=== PATIENT | female | born 1965 | race Caucasian/White ===

== ENCOUNTER 2016-05-24 21:28 | Observation (INO) | payer BC, MEDICARE ==
[2016-05-24] MEDS ORDERED: METOCLOPRAMIDE 5 MG/ML 2 ML VIAL IVP STA (22:01)
[2016-05-24] MEDS ORDERED: SODIUM CHLORIDE 0.9% 1,000 ML IV STA ×2 (22:01)
[2016-05-24 22:27] LABS: Basophils % (A) 0 %; CHCM 33.6; Eosinophils # (A) 0.1 k/uL (0-0.7); Eosinophils % (A) 2 %; HCT 35.1 % (34.0-46.0); HDW 2.92; HGB 11.7 gm/dL (11.4-16.0); Luc # (Auto) 0.08; Luc % (Auto) 3; Lymphocytes # (A) 0.1 k/uL (1.0-4.8); Lymphocytes % (A) 5 %; MCH 32.8 pg (25.0-35.0); MCHC 33.3 g/dL (31.0-37.0); MCV 98.7 fL (80.0-100.0); Macrocytosis Slight; Mean Platelet Volume 7.3; Monocytes # (A) 0.2 k/uL (0-1.0); Monocytes % (A) 6 %; Neutrophils # (A) 2.4 k/uL (1.3-7.7); Neutrophils % (A) 84 %; RBC 3.56 m/uL (3.80-5.40); RDW 15.3 % (11.5-15.5); WBC 2.8 k/uL (3.8-10.6)
[2016-05-24 22:41] LABS: ALT 30 U/L (9-52); AST 16 U/L (14-36); Alkaline Phosphatase 54 U/L (38-126); Amylase 56 U/L (30-110); Anion Gap 8 mmol/L; Blood Urea Nitrogen 12 mg/dL (7-17); Calcium 8.8 mg/dL (8.4-10.2); Carbon Dioxide 27 mmol/L (22-30); Chloride 103 mmol/L (98-107); Glucose 110 mg/dL (74-99); Non-African American GFR(MDRD) >60 (>60 ml/min/1.73 sqM); Potassium 3.8 mmol/L (3.5-5.1); Sodium 138 mmol/L (137-145); Total Bilirubin 0.6 mg/dL (0.2-1.3)
[2016-05-24 23:02] LABS: Appearance,Urine Cloudy (Clear); Bacteria,Urine Rare /hpf; Bilirubin,Urine Negative (Negative); Glucose,Urine (UA) Negative (Negative); Ketones,Urine Negative (Negative); Leukocyte Esterase,Urine Large (Negative); Mucus,Urine Rare /hpf; Nitrite,Urine Positive (Negative); Particle Count 31956; Protein,Urine Trace (Negative); RBC,Urine 30 /hpf (0-5); Specific Gravity,Urine 1.014 (1.001-1.035); Squamous Epithelial Cell,Urine 3 /hpf (0-4); UA Billing (MACRO vs. MICRO) MICRO; Urobilinogen,Urine <2.0 mg/dL (<2.0); WBC,Urine >182 /hpf (0-5)
--- NOTE | 2016-05-24 23:48 | ED ---
General Adult HPI - General Chief complaint: Nausea/Vomiting/Diarrhea Stated complaint: Nausea/Headache Time Seen by Provider: 05/24/16 21:55 Source: patient Mode of arrival: wheelchair Limitations: no limitations - History of Present Illness Initial comments: This 50-year-old white female presents with a complaint of some nausea and weakness. She denies any vomiting diarrhea or constipation. She apparently had some shaking chills earlier. She did not measure any temperature as she does not have a thermometer. She took some Advil 2 hours ago. She relates that she had a recent urinary tract infection and stopped antibiotics proximally 3 days ago. She is unsure which antibiotic she was taking. She's been very weak and relates that she's had a hard time with ambulation today. She has a history of glioblastoma which she's been fighting for the past one year. She gets chemotherapy and has been on this intermittently for the last 10 months through the [facility]. Her last chemotherapy was 2 weeks ago. She denies any other complaints or modifying factors. - Related Data Home Medications Medication Instructions Recorded Confirmed Citalopram Hydrobromide [CeleXA] 10 mg PO HS 06/13/15 05/24/16 Montelukast Sodium [Singulair] 10 mg PO HS 06/13/15 05/24/16 levETIRAcetam [Keppra] 500 mg PO BID 09/14/15 05/24/16 Albuterol Inhaler [Ventolin Hfa 1 - 2 puff INHALATION RT-Q6H PRN 05/24/16 Inhaler] Albuterol Nebulized [Ventolin 2.5 mg INHALATION RT-Q6H PRN 05/24/16 05/24/16 Nebulized] Amitriptyline HCl [Elavil] 10 mg PO HS 05/24/16 05/24/16 Calcium Carbonate [Tums] 1,000 mg PO DAILY 05/24/16 05/24/16 Cholecalciferol [Vitamin D3] 2,000 unit PO DAILY 05/24/16 05/24/16 Dexamethasone [Hexadrol] 4 mg PO DAILY 05/24/16 05/24/16 Methylphenidate HCl [Ritalin] 20 mg PO DAILY 05/24/16 05/24/16 Allergies Allergy/AdvReac Type Severity Reaction Status Date / Time No Known Allergies Allergy Verified 05/24/16 21:52 Review of Systems ROS Statement: Those systems with pertinent positive or pertinent negative responses have been documented in the HPI. ROS Other: All systems not noted in ROS Statement are negative. Past Medical History Past Medical History: Cancer, Fibromyalgia Additional Past Medical History / Comment(s): EPILEPSY RESOLVED WITH SURGERY, glioblastoma History of Any Multi-Drug Resistant Organisms: None Reported Additional Past Surgical History / Comment(s): BRAIN SURGERY X2 Past Anesthesia/Blood Transfusion Reactions: No Reported Reaction Past Psychological History: No Psychological Hx Reported Smoking Status: Never smoker Past Alcohol Use History: Rare Past Drug Use History: None Reported General Exam - General Exam Comments Initial Comments: GENERAL: The patient is well nourished and well hydrated. VITAL SIGNS: Heart rate, blood pressure, respiratory rate reviewed as recorded in nurse's notes. EYES: Pupils are round and reactive. Extraocular movements are intact. No conjunctival / lid redness or swelling. ENT: No external evidence of injury, swelling, or ecchymosis. Airway is patent. Throat is clear. NECK: Nontender. No swelling or evidence of injury. No subcutaneous emphysema. Trachea is midline. No thyroid mass. HEART: Regular rate and rhythm. Good peripheral pulses. LUNGS/CHEST: Breath sounds clear and equal bilaterally. No rales, rhonchi, or wheezes. No ecchymosis, subcutaneous emphysema, or tenderness. ABDOMEN: Abdomen soft without tenderness. No palpable masses or organomegaly. No peritoneal signs. No abdominal wall swelling or ecchymosis. EXTREMITIES: No extremity tenderness. Normal muscle tone and function. No thoracolumbar tenderness. NEUROLOGIC: Sensation is grossly intact. Cranial nerve exam reveals face is symmetrical, tongue is midline, speech is clear. SKIN: No abrasions or ecchymosis is noted. No induration or masses noted. PSYCHIATRIC: Alert and oriented. Appropriate behavior and judgment. Limitations: no limitations Course Vital Signs 05/24/16 21:39 Temperature 98.6 F Pulse Rate 86 Respiratory 18 Rate Blood Pressure 113/78 O2 Sat by Pulse 96 Oximetry Medical Decision Making - Medical Decision Making The patient was seen and examined. All diagnostics were reviewed. The urinalysis did come back showing significant evidence of infection similar to that and old records from 04/30/2016. The white blood cell count is decreased at 2.8. Manger of labs are essentially within normal limits. She receives IV fluids as well as Reglan and her nausea is improved. She also receives Rocephin intravenously. This felt as though she does have urinary tract infection. She is also immunocompromised due to her cancer and chemotherapy treatment. Is felt as though she likely had some rigors earlier and is very weak. Is felt as though she would benefit from admission to the hospital for further IV antibiotic treatment. The case will be discussed with internal medicine in the near future and patient is admitted for further treatment. - Lab Data Result diagrams: 05/24/16 22:15 05/24/16 22:15 Lab Results 05/24/16 05/24/16 05/24/16 Range/Units 22:15 22:15 22:39 WBC 2.8 L (3.8-10.6) k/uL RBC 3.56 L (3.80-5.40) m/uL Hgb 11.7 (11.4-16.0) gm/dL Hct 35.1 (34.0-46.0) % MCV 98.7 (80.0-100.0) fL MCH 32.8 (25.0-35.0) pg MCHC 33.3 (31.0-37.0) g/dL RDW 15.3 (11.5-15.5) % Plt Count 175 (150-450) k/uL Neutrophils % 84 % Lymphocytes % 5 % Monocytes % 6 % Eosinophils % 2 % Basophils % 0 % Neutrophils # 2.4 (1.3-7.7) k/uL Lymphocytes # 0.1 L (1.0-4.8) k/uL Monocytes # 0.2 (0-1.0) k/uL Eosinophils # 0.1 (0-0.7) k/uL Basophils # 0.0 (0-0.2) k/uL Macrocytosis Slight Sodium 138 (137-145) mmol/L Potassium 3.8 (3.5-5.1) mmol/L Chloride 103 (98-107) mmol/L Carbon Dioxide 27 (22-30) mmol/L Anion Gap 8 mmol/L BUN 12 (7-17) mg/dL Creatinine 0.59 (0.52-1.04) mg/dL Est GFR (MDRD) Af Amer >60 (>60 ml/min/1.73 sqM) Est GFR (MDRD) Non-Af >60 (>60 ml/min/1.73 sqM) Glucose 110 H (74-99) mg/dL Calcium 8.8 (8.4-10.2) mg/dL Total Bilirubin 0.6 (0.2-1.3) mg/dL AST 16 (14-36) U/L ALT 30 (9-52) U/L Alkaline Phosphatase 54 (38-126) U/L Total Protein 6.0 L (6.3-8.2) g/dL Albumin 3.5 (3.5-5.0) g/dL Amylase 56 (30-110) U/L Lipase 170 (23-300) U/L Urine Color Yellow Urine Appearance Cloudy H (Clear) Urine pH 6.0 (5.0-8.0) Ur Specific [place] 1.014 (1.001-1.035) Urine Protein Trace H (Negative) Urine Glucose (UA) Negative (Negative) Urine Ketones Negative (Negative) Urine Blood Small H (Negative) Urine Nitrate Positive H (Negative) Urine Bilirubin Negative (Negative) Urine Urobilinogen <2.0 (<2.0) mg/dL Ur Leukocyte Esterase Large H (Negative) Urine RBC 30 H (0-5) /hpf Urine WBC >182 H (0-5) /hpf Urine WBC Clumps Moderate H (None) /hpf Ur Squamous Epith Cells 3 (0-4) /hpf Urine Bacteria Rare H (None) /hpf Urine Mucus Rare H (None) /hpf Disposition Clinical Impression: UTI (urinary tract infection), Glioblastoma, Weakness generalized, Nausea, Failure of outpatient treatment, Leukopenia Disposition: ADMITTED IP TO THIS [facility] Condition: Fair Time of Disposition: 23:49 Decision Date: 05/24/16 Decision Time: 23:49
[2016-05-24] MEDS ORDERED: NALOXONE 0.4 MG/ML 1 ML VIAL IV PRN (23:52)
[2016-05-24] MEDS ORDERED: ACETAMINOPHEN TAB 325 MG TAB PO PRN (23:52)
[2016-05-24] MEDS ORDERED: IBUPROFEN 400 MG TAB PO PRN (23:52)
[2016-05-25] MEDS ORDERED: METOCLOPRAMIDE 5 MG/ML 2 ML VIAL IVP PRN (00:01)
[2016-05-25] MEDS ORDERED: ALBUTEROL INHALER 60 PUFF/8 GM INHALER INHALATION PRN (00:02)
[2016-05-25] MEDS ORDERED: ALBUTEROL NEBULIZED 2.5 MG/3 ML INHALATION PRN (00:02)
[2016-05-25 01:48] VITALS: RESP 16
[2016-05-25 01:54] VITALS: BMI 23.7
[2016-05-25 07:53] VITALS: BP 122/75; PULSE 84; TEMP 97.4
[2016-05-25] MEDS ORDERED: METHYLPHENIDATE HCL 10 MG TAB PO SCH (09:00)
[2016-05-25] MEDS ORDERED: CALCIUM CARBONATE 500 MG CHEWABLE PO SCH (09:00)
[2016-05-25] MEDS ORDERED: PANTOPRAZOLE 40 MG/10 ML VIAL IV SCH (09:00)
[2016-05-25] MEDS ORDERED: CHOLECALCIFEROL 1,000 UNIT TAB PO SCH (09:00)
[2016-05-25] MEDS ORDERED: DEXAMETHASONE 4 MG TAB PO SCH (09:00)
[2016-05-25] MEDS ORDERED: ENOXAPARIN 40 MG/0.4 ML SYRINGE SQ SCH (09:00)
[2016-05-25] MEDS ORDERED: levETIRAcetam 500 MG TAB PO SCH (09:00)
--- NOTE | 2016-05-25 12:41 | HP ---
HISTORY AND PHYSICAL/DISCHARGE SUMMARY: DATE OF ADMISSION: Patient is a 50-year-old with history of glioblastoma multiforme, came in with complaints of nausea, vomiting and diarrhea, has been going on for about 2 days and patient believes she has stomach flu. She had some flulike symptoms as well. Patient is admitted for urinary tract infection. Patient does not have any symptoms of urinary tract infection. Patient does not any leukocytosis. Patient does not have any fevers. Patient does not have any suprapubic pain or dysuria, although her urine appear to be of normal asymptomatic bacteria which does not warrant any antibiotics. Patient was given 2 doses of Rocephin, antibiotics will be discontinued. Patient has asymptomatic bacteria. Patient will be discharged today. Her symptoms of diarrhea resolved. Patient used antibiotics about a week ago for a urinary tract infection and patient's UA showed large leukocyte esterase, RBC of 30, WBC of 182, although she received 2 dose of antibiotics and I do not believe patient has UTI, I rather believe patient has symptomatic bacteria and if patient has diarrhea before discharge, will obtain a C. diff testing. Her diarrhea is completely resolved at this point of time. REVIEW OF SYSTEMS: GASTROINTESTINAL: As described in HPI. Patient denied any abdominal pain, denied any nausea, vomiting at this time. CONSTITUTIONAL: No fever, no malaise, no fatigue. HEENT: No recent visual problems or hearing problems. Denied any sore throat. CARDIOVASCULAR: No chest pain, orthopnea, PND, no palpitations, no syncope. PULMONARY: No shortness of breath, no cough, no hemoptysis. NEUROLOGICAL: No headaches, no weakness, no numbness. HEMATOLOGICAL: Denies any bleeding or petechiae. GENITOURINARY: Denies any burning micturition, frequency, or urgency. MUSCULOSKELETAL/RHEUMATOLOGICAL: Denies any joint pain, swelling, or any muscle pain. ENDOCRINE: Denies any polyuria or polydipsia. The rest of the 14 point review of systems is negative. PAST MEDICAL HISTORY: Glioblastoma multiforme and fibromyalgia and ADHD and depression. Home medications include citalopram, montelukast, Levetiracetam, albuterol, amitriptyline, calcium carbonate, cholecalciferol, Decadron and methylphenidate. SOCIAL HISTORY: Denied any smoking, alcohol abuse or any drug abuse. FAMILY HISTORY: Significant for hypothyroidism and epilepsy in the family. PHYSICAL EXAMINATION: Temperature 97.4, pulse of 84, respiratory rate of 16, blood pressure is 122/75, saturating at 96% on room air. GENERAL: The patient is alert and oriented x3, not in any acute distress. Well developed, well nourished. HEENT: Pupils are round and equally reacting to light. EOMI. No scleral icterus. No conjunctival pallor. Normocephalic, atraumatic. No pharyngeal erythema. No thyromegaly. CARDIOVASCULAR: S1 and S2 present. No murmurs, rubs, or gallops. PULMONARY: Chest is clear to auscultation, no wheezing or crackles. ABDOMEN: Soft, nontender, nondistended, normoactive bowel sounds. No palpable organomegaly. MUSCULOSKELETAL: No joint swelling or deformity. EXTREMITIES: No cyanosis, clubbing, or pedal edema. NEUROLOGICAL: Gross neurological examination did not reveal any focal deficits. SKIN: No rashes. LABORATORY DATA: CBC, CMP, essentially within normal limits. UA as mentioned above. ASSESSMENT AND PLAN: 1. Nausea, vomiting secondary to gastroenteritis. Symptoms resolved. Patient will be discharged today. 2. Asymptomatic bacteria which does not warrant any antibiotics. I do not believe patient has urinary tract infection. 3. Glioblastoma multiforme. 4. Fibromyalgia. 5. Asthma without any acute exacerbation. For above-mentioned chronic medical problems, patient will continue her home medications. Patient will be discharged today in stable medical to home and patient will follow with her primary care physician on May 31, 2016 at 10:30 a.m. Activity as tolerated. Regular diet. This dictation is both H&P and discharge summary.
[2016-05-25] MEDS ORDERED: AMITRIPTYLINE HCL 10 MG TAB PO SCH (21:00)
[2016-05-25] MEDS ORDERED: MONTELUKAST 10 MG TAB PO SCH (21:00)
[2016-05-25] MEDS ORDERED: CITALOPRAM HYDROBROMIDE 10 MG TAB PO SCH (21:00)
[2016-05-26] MEDS ORDERED: PANTOPRAZOLE 40 MG TABLET PO SCH (07:30)
--- NOTE | 2016-06-09 15:17 | CDI ---
Dr. Rizzo, Pt with magnesium level of 1.4 per labs. Pt recieved magnesium in the EC and on the floor. Please add an addendum with the diagnosis. "Hypomagnesium" "low magnesium" Thank you, Kate PROCTOR
== END 2016-05-25 12:24 | disposition home or self-care (01) ==
LOC: EC 21:28 → INTOOBSV 05-25 00:17 → 4MS4W 05-25 00:17
PROVIDERS: ADMIT Internal Medicine; ATTEND Internal Medicine
DX: K52.9 Noninfective gastroenteritis and colitis, unspecified (principal); R82.71 Bacteriuria; C71.9 Malignant neoplasm of brain, unspecified; M79.7 Fibromyalgia; J45.909 Unspecified asthma, uncomplicated; G40.909 Epilepsy, unspecified, not intractable, without status epilepticus; F32.9 Major depressive disorder, single episode, unspecified; F90.9 Attention-deficit hyperactivity disorder, unspecified type; D72.819 Decreased white blood cell count, unspecified; Z92.21 Personal history of antineoplastic chemotherapy; Z79.899 Other long term (current) drug therapy; Z79.52 Long term (current) use of systemic steroids; Z82.0 Family history of epilepsy and other diseases of the nervous system
CPT/HCPCS: 96365; 96361; 96375; 99285; 36415; 80053; 82150; 83690; 85025; 81001; 87040; 87086; 87077; 87186; G0378; J8540; J2765; J1650; J0696; C9113

== ENCOUNTER → 2016-08-18 | Outpatient (CLI) | payer BC, MEDICARE ==
--- NOTE | 2016-08-18 13:27 | MM ---
Reason for exam: follow-up at short interval from prior study. Last mammogram was performed 6 months ago. History: Patient is postmenopausal and has history of other cancer at age 50. Cancelled Right US Needle Biopsy of the right breast, July 28, 2007. Ultrasound-guided core biopsy of the right breast, 2005. Excisional biopsy of the right breast, 2005. Took hormonal contraceptives for 12 years beginning at age 17. Took progesterone for 2 years. Physical Findings: Nurse did not find any significant physical abnormalities on exam. MG 3D Diag Mammo W/Cad RT CC, MLO, ML, CC with magnification, MLO with magnification, and ML with magnification view(s) were taken of the right breast. Prior study comparison: February 18, 2016, bilateral MG 3d screening mammo w/cad. January 16, 2014, bilateral MG screening mammo w CAD. February 18, 2012, [facility] DIGITAL LEFT BREAST MAMMOGRAM w/CAD. The breast tissue is heterogeneously dense. This may lower the sensitivity of mammography. Finding: There are typically benign dystrophic calcifications in the upper outer quadrant of the right breast. There is no worrisome cluster of micro calcifications. These results were verbally communicated with the patient and result sheet given to the patient on 08/18/16. ASSESSMENT: Benign, BI-RAD 2 RECOMMENDATION: Follow-up diagnostic mammogram of both breasts in 6 months. Back on schedule January 2017.
== END | disposition home or self-care (01) ==
LOC: RADMAMWWP 11:08
PROVIDERS: ATTEND Family Medicine
DX: R92.8 Other abnormal and inconclusive findings on diagnostic imaging of breast (principal)
CPT/HCPCS: G0206; G0279

== ENCOUNTER 2016-09-05 10:04 | Inpatient (IN) | payer BC, MEDICARE ==
[2016-09-05] MEDS ORDERED: ACETAMINOPHEN IV (For NPO) 1,000 MG in EMPTY BAG 1 BAG IVPB STA (10:19)
--- NOTE | 2016-09-05 10:26 | ED ---
General Adult HPI - General Chief complaint: Fever Stated complaint: vomiting Time Seen by Provider: 09/05/16 10:12 Source: patient, family, RN notes reviewed Mode of arrival: wheelchair Limitations: physical limitation - History of Present Illness Initial comments: Patient is a pleasant 51-year-old female presenting to the emergency Department with general weakness. Patient has glioblastoma. Onset of symptoms was last night. Patient has had multiple episodes of nausea and vomiting and diarrhea. Patient did have similar symptoms once previously associated with dehydration. Patient was generally weak throughout and needed 3 people to help get her in the car. Patient is drowsy and sleeps through discussion with family. Family provides majority of history. Patient does easily awaken to voice or light touch however falls asleep after less than a minute. Patient does admit to having some abdominal discomfort. No dysuria. No cough. Patient is currently in between chemotherapy treatments, last was 3 weeks ago. Patient has her care done [facility]. Patient does have a external cranial device. Patient has chronic left-sided weakness. Patient states she is generally weak without increase in specific area of weakness. - Related Data Home Medications Medication Instructions Recorded Confirmed Citalopram Hydrobromide [CeleXA] 10 mg PO HS 06/13/15 09/05/16 Montelukast Sodium [Singulair] 10 mg PO HS 06/13/15 09/05/16 Albuterol Inhaler [Ventolin Hfa 1 - 2 puff INHALATION RT-Q6H PRN 05/24/16 Inhaler] Albuterol Nebulized [Ventolin 2.5 mg INHALATION RT-Q6H PRN 05/24/16 09/05/16 Nebulized] Calcium Carbonate [Tums] 1,000 mg PO DAILY 05/24/16 09/05/16 Cholecalciferol [Vitamin D3] 2,000 unit PO DAILY 05/24/16 09/05/16 Dexamethasone [Hexadrol] 4 mg PO DAILY 05/24/16 09/05/16 Methylphenidate HCl [Ritalin] 20 mg PO DAILY 05/24/16 09/05/16 Oxybutynin Chloride [Ditropan XL] 15 mg PO DAILY 09/05/16 09/05/16 levETIRAcetam [Keppra] 1,000 mg PO Q12HR 09/05/16 09/05/16 Allergies Allergy/AdvReac Type Severity Reaction Status Date / Time No Known Allergies Allergy Verified 09/05/16 10:32 Review of Systems ROS Statement: Those systems with pertinent positive or pertinent negative responses have been documented in the HPI. ROS Other: All systems not noted in ROS Statement are negative. Constitutional: Reports: weakness Eyes: Denies: eye pain ENT: Denies: ear pain Respiratory: Denies: cough, dyspnea Cardiovascular: Denies: chest pain Endocrine: Reports: fatigue Gastrointestinal: Reports: abdominal pain, nausea, vomiting, diarrhea Genitourinary: Denies: dysuria Musculoskeletal: Denies: back pain Skin: Denies: rash Neurological: Reports: weakness Past Medical History Past Medical History: Asthma, Cancer, Fibromyalgia Additional Past Medical History / Comment(s): EPILEPSY RESOLVED WITH SURGERY, glioblastoma diagnosed 06/13/2015 with radiation tx 6weeks and chemo oraltx last dose 2 weeks ago. UTI History of Any Multi-Drug Resistant Organisms: None Reported Additional Past Surgical History / Comment(s): BRAIN SURGERY X2 Past Anesthesia/Blood Transfusion Reactions: No Reported Reaction Past Psychological History: No Psychological Hx Reported Smoking Status: Never smoker Past Alcohol Use History: Rare Past Drug Use History: None Reported - Past Family History Mother Family Medical History: Thyroid Disorder Father Family Medical History: Myocardial Infarction ([place]) Additional Family Medical History / Comment(s): epilepsy General Exam Limitations: physical limitation General appearance: other (Drowsy but easily arousable) Head exam: Present: other (External device attached to the right side of the head) Eye exam: Present: normal appearance, PERRL, EOMI ENT exam: Present: mucous membranes dry Neck exam: Present: normal inspection. Absent: meningismus Respiratory exam: Present: normal lung sounds bilaterally Cardiovascular Exam: Present: tachycardia GI/Abdominal exam: Present: soft. Absent: distended, tenderness, guarding, rebound, rigid Extremities exam: Present: other (Left leg brace) Neurological exam: Present: alert, CN II-XII intact Expanded Cranial nerves: EOM's Intact: Normal Motor strength exam: RUE: 5, LUE: 5, RLE: 5, LLE: 3 Eye Response: (3) open to voice Motor Response: (6) obeys commands Verbal Response: (5) oriented Psychiatric exam: Present: normal affect, normal mood Skin exam: Present: normal color Course Vital Signs 09/05/16 09/05/16 09/05/16 10:07 11:00 11:57 Temperature 100.5 F H Pulse Rate 142 H 122 H 110 H Respiratory 20 18 18 Rate Blood Pressure 124/81 116/79 111/73 O2 Sat by Pulse 96 98 97 Oximetry - Reevaluation(s) Reevaluation #1: 09/05/16 11:54 Patient does meet criteria for severe sepsis diagnosed at 11:48 AM. Patient has evidence of urinary tract infection. IV fluid bolus has been provided. Antibiotics have been ordered. Blood culture and lactic acid has been drawn. 09/05/16 12:55 Case was earlier discussed with Dr. Xavier who will consult. He agrees with care at this time. EKG Findings - EKG Comments: EKG Findings:: Sinus tachycardia 123. UT 120. QRS 76. QT 4:30. QTC 4:15. Normal axis. LVH criteria. Nonspecific T waves. Medical Decision Making - Medical Decision Making Patient was reevaluated and somewhat improved. Patient and family updated regarding results and plan. Dr. Smith has been paged for admission for Dr. hernandez - Lab Data Result diagrams: 09/05/16 10:30 09/05/16 10:30 Lab Results 09/05/16 09/05/16 09/05/16 Range/Units 10:30 10:30 10:30 WBC 8.8 (3.8-10.6) k/uL RBC 3.86 (3.80-5.40) m/uL Hgb 12.7 (11.4-16.0) gm/dL Hct 38.5 (34.0-46.0) % MCV 99.9 (80.0-100.0) fL MCH 33.0 (25.0-35.0) pg MCHC 33.0 (31.0-37.0) g/dL RDW 16.1 H (11.5-15.5) % Plt Count 145 L (150-450) k/uL Neutrophils % (Manual) 83.0 % Band Neutrophils % 14.0 % Lymphocytes % (Manual) 2.0 % Monocytes % (Manual) 1.0 % Neutrophils # (Manual) 8.5 H (1.3-7.7) k/uL Lymphocytes # (Manual) 0.2 L (1.0-4.8) k/uL Monocytes # (Manual) 0.1 (0-1.0) k/uL Nucleated RBCs 0 (0-0) /100 WBC Manual Slide Review Performed Poikilocytosis (manual Present Anisocytosis Slight Macrocytosis Slight PT (9.0-12.0) sec INR (<1.1) APTT (22.0-30.0) sec Sodium 140 (137-145) mmol/L Potassium 3.3 L (3.5-5.1) mmol/L Chloride 104 (98-107) mmol/L Carbon Dioxide 23 (22-30) mmol/L Anion Gap 13 mmol/L BUN 24 H (7-17) mg/dL Creatinine 0.80 (0.52-1.04) mg/dL Est GFR (MDRD) Af Amer >60 (>60 ml/min/1.73 sqM) Est GFR (MDRD) Non-Af >60 (>60 ml/min/1.73 sqM) Glucose 136 H (74-99) mg/dL Plasma Lactic Acid [place] 2.8 H* (0.7-2.0) mmol/L Calcium 9.3 (8.4-10.2) mg/dL Total Bilirubin 1.1 (0.2-1.3) mg/dL AST 26 (14-36) U/L ALT 37 (9-52) U/L Alkaline Phosphatase 75 (38-126) U/L Total Protein 6.2 L (6.3-8.2) g/dL Albumin 3.9 (3.5-5.0) g/dL Urine Color Urine Appearance (Clear) Urine pH (5.0-8.0) Ur Specific [place] (1.001-1.035) Urine Protein (Negative) Urine Glucose (UA) (Negative) Urine Ketones (Negative) Urine Blood (Negative) Urine Nitrite (Negative) Urine Bilirubin (Negative) Urine Urobilinogen (<2.0) mg/dL Ur Leukocyte Esterase (Negative) Urine RBC (0-5) /hpf Urine WBC (0-5) /hpf Urine WBC Clumps (None) /hpf Ur Squamous Epith Cells (0-4) /hpf Urine Bacteria (None) /hpf Urine Mucus (None) /hpf 09/05/16 09/05/16 Range/Units 11:10 11:10 WBC (3.8-10.6) k/uL RBC (3.80-5.40) m/uL Hgb (11.4-16.0) gm/dL Hct (34.0-46.0) % MCV (80.0-100.0) fL MCH (25.0-35.0) pg MCHC (31.0-37.0) g/dL RDW (11.5-15.5) % Plt Count (150-450) k/uL Neutrophils % (Manual) % Band Neutrophils % % Lymphocytes % (Manual) % Monocytes % (Manual) % Neutrophils # (Manual) (1.3-7.7) k/uL Lymphocytes # (Manual) (1.0-4.8) k/uL Monocytes # (Manual) (0-1.0) k/uL Nucleated RBCs (0-0) /100 WBC Manual Slide Review Poikilocytosis (manual Anisocytosis Macrocytosis PT 11.6 (9.0-12.0) sec INR 1.2 (<1.1) APTT 24.1 (22.0-30.0) sec Sodium (137-145) mmol/L Potassium (3.5-5.1) mmol/L Chloride (98-107) mmol/L Carbon Dioxide (22-30) mmol/L Anion Gap mmol/L BUN (7-17) mg/dL Creatinine (0.52-1.04) mg/dL Est GFR (MDRD) Af Amer (>60 ml/min/1.73 sqM) Est GFR (MDRD) Non-Af (>60 ml/min/1.73 sqM) Glucose (74-99) mg/dL Plasma Lactic Acid [place] (0.7-2.0) mmol/L Calcium (8.4-10.2) mg/dL Total Bilirubin (0.2-1.3) mg/dL AST (14-36) U/L ALT (9-52) U/L Alkaline Phosphatase (38-126) U/L Total Protein (6.3-8.2) g/dL Albumin (3.5-5.0) g/dL Urine Color Yellow Urine Appearance Cloudy H (Clear) Urine pH 6.5 (5.0-8.0) Ur Specific [place] 1.010 (1.001-1.035) Urine Protein 1+ H (Negative) Urine Glucose (UA) Negative (Negative) Urine Ketones Negative (Negative) Urine Blood Moderate H (Negative) Urine Nitrite Positive H (Negative) Urine Bilirubin Negative (Negative) Urine Urobilinogen <2.0 (<2.0) mg/dL Ur Leukocyte Esterase Large H (Negative) Urine RBC 5 (0-5) /hpf Urine WBC 151 H (0-5) /hpf Urine WBC Clumps Moderate H (None) /hpf Ur Squamous Epith Cells <1 (0-4) /hpf Urine Bacteria Occasional H (None) /hpf Urine Mucus Few H (None) /hpf - Radiology Data Radiology results: image reviewed (Extensive white matter vasogenic edema through the right centrum underlying mass along the midline may remain present. 0.5 cm subfalcine herniation. Chest x-ray shows no acute process.) Disposition Clinical Impression: Severe sepsis, UTI (urinary tract infection), Glioblastoma Disposition: ADMITTED IP TO THIS HOSP Referrals: Russ Hernandez III, MD [Primary Care Provider] - 1-2 days Decision Time: 12:58
[2016-09-05 10:47] LABS: Anisocytosis Slight; CH 33.8; CHCM 33.9; HCT 38.5 % (34.0-46.0); HDW 3.24; HGB 12.7 gm/dL (11.4-16.0); Immature Gran Flag Moderate; MCV 99.9 fL (80.0-100.0); Macrocytosis Slight; Mean Platelet Volume 6.9; RBC 3.86 m/uL (3.80-5.40); RDW 16.1 % (11.5-15.5); WBC 8.8 k/uL (3.8-10.6); WBC (Perox) 8.95
[2016-09-05 11:04] LABS: ALT 37 U/L (9-52); AST 26 U/L (14-36); Alkaline Phosphatase 75 U/L (38-126); Anion Gap 13 mmol/L; Blood Urea Nitrogen 24 mg/dL (7-17); Calcium 9.3 mg/dL (8.4-10.2); Carbon Dioxide 23 mmol/L (22-30); Chloride 104 mmol/L (98-107); Glucose 136 mg/dL (74-99); Non-African American GFR(MDRD) >60 (>60 ml/min/1.73 sqM); Potassium 3.3 mmol/L (3.5-5.1); Sodium 140 mmol/L (137-145); Total Bilirubin 1.1 mg/dL (0.2-1.3); Total Protein 6.2 g/dL (6.3-8.2)
[2016-09-05 11:08] LABS: Add Differential Manual Differential
[2016-09-05 11:10] LABS: Manual Review Performed; Nucleated Red Blood Cells 0 /100 WBC (0-0); Total Cells Counted 100
[2016-09-05] MEDS ORDERED: SODIUM CHLORIDE 0.9% 1,000 ML IV STA (11:14)
[2016-09-05] MEDS: SODIUM CHLORIDE 0.9% 500 ML IV SCH ×2 (11:18→12:20)
[2016-09-05 11:31] LABS: Appearance,Urine Cloudy (Clear); Bacteria,Urine Occasional /hpf; Bilirubin,Urine Negative (Negative); Glucose,Urine (UA) Negative (Negative); Ketones,Urine Negative (Negative); Leukocyte Esterase,Urine Large (Negative); Mucus,Urine Few /hpf; Nitrite,Urine Positive (Negative); PH, Urine 6.5 (5.0-8.0); Particle Count 107276; Protein,Urine 1+ (Negative); RBC,Urine 5 /hpf (0-5); Squamous Epithelial Cell,Urine <1 /hpf (0-4); UA Billing (MACRO vs. MICRO) MICRO; Urobilinogen,Urine <2.0 mg/dL (<2.0); WBC,Urine 151 /hpf (0-5)
[2016-09-05 11:35] LABS: INR 1.2 (<1.1); Partial Thromboplastin Time 24.1 sec (22.0-30.0); Prothrombin Time 11.6 sec (9.0-12.0)
--- NOTE | 2016-09-05 12:54 | XR ---
EXAMINATION TYPE: XR chest 2V DATE OF EXAM: 09/05/2016 COMPARISON: NONE INDICATION: Fever TECHNIQUE: Frontal and lateral views of the chest are obtained. FINDINGS: The heart size is normal. The pulmonary vasculature is normal. The lungs are clear. IMPRESSION: 1. No acute pulmonary process.
--- NOTE | 2016-09-05 12:54 | CT ---
EXAMINATION TYPE: CT brain wo con DATE OF EXAM: 09/05/2016 COMPARISON: 06/13/2015 INDICATION: glioblastoma history, weakness DLP: 1003.6 mGycm, Automated exposure control for dose reduction was used. CONTRAST: None CT of the brain is performed utilizing 3 mm thick sections through the posterior fossa and 3 mm thick sections through the remaining calvarium. Study is performed within 24 hours of arrival to the hosp [facility]. No abnormal hyperdensity is present to suggest an acute intracranial hemorrhage. There is calcification within the medial right parietal lobe. Extensive vasogenic edema appears throu ghout the centrum semiovale. There appears to be an old craniotomy in the right temporal region. Ence phalomalacia of the right temporal lobe is present. There is approximately 0.5 cm right to left subfalcine herniation. There is effacement of sulci on th e right frontal parietal lobes. Quadrigeminal plate and ambient cistern are patent. Fourth ventricle is normal in midline. Third ventricle appears midline. No acute infarcts are evident. Ventricles and sulci are appropriate for the patient age. Note is again made of the left shift of th e right lateral ventricle. Temporal horn dilatation is not identified. Paranasal sinuses and mastoid air cells within the [id number] are clear. IMPRESSIONS: 1. There appears to be extensive white matter vasogenic edema through the right centrum semiovale. Underlying mass along the midline may remain present and more calcified than prior examination. [facility] MRI for closer evaluation. 2. 0.5 cm subfalcine herniation. No entrapment or hydrocephalus is evident at this time.
[2016-09-05] MEDS ORDERED: NALOXONE 0.4 MG/ML 1 ML VIAL IV PRN (12:58)
--- NOTE | 2016-09-05 13:51 | P.HPIM ---
History of Present Illness H&P Date: 09/05/16 Chief Complaint: Diarrhea 1-year-old female with glioblastoma multiform a with recurrence currently is being treated [facility] with the radiofrequency device on her skull and Flaquita comes into the hospital with watery diarrhea for about 24 hours prior to admission. Patient states that the she has not had anyone else in the family with similar diarrhea no recent antibiotics or reported She also states to have some urinary urgency or frequency. Denies having any headaches nausea chest pain difficulty breathing. Patient was noted to have a fever of 101 was admitted to the hospital was noted to have significant dehydration with a lactic acidosis around 2.4 Patient was given IV fluids a UA did appear to show some bacteria Patient has been given IV fluids per the sepsis protocol Currently states to be doing better has not had a bowel movement in over 67 hours No additional complaints reported A computed tomography scan of the head does show a tumor with vasogenic edema. Patient states that she's had a MRI or 2 weeks ago at the [facility] was reported of similar symptoms. Patient is currently maintained on Decadron for vasogenic edema as well Review of Systems All systems: negative (Noted in HPI) Past Medical History Past Medical History: Asthma, Cancer, Fibromyalgia Additional Past Medical History / Comment(s): EPILEPSY RESOLVED WITH SURGERY, glioblastoma diagnosed 06/13/2015 with radiation tx 6weeks and chemo oraltx last dose 2 weeks ago. UTI History of Any Multi-Drug Resistant Organisms: None Reported Additional Past Surgical History / Comment(s): BRAIN SURGERY X2 Past Anesthesia/Blood Transfusion Reactions: No Reported Reaction Past Psychological History: No Psychological Hx Reported Smoking Status: Never smoker Past Alcohol Use History: Rare Past Drug Use History: None Reported - Past Family History Mother Family Medical History: Thyroid Disorder Father Family Medical History: Myocardial Infarction ([place]) Additional Family Medical History / Comment(s): epilepsy Medications and Allergies Home Medications Medication Instructions Recorded Confirmed Type Citalopram Hydrobromide [CeleXA] 10 mg PO HS 06/13/15 09/05/16 History Montelukast Sodium [Singulair] 10 mg PO HS 06/13/15 09/05/16 History Albuterol Inhaler [Ventolin Hfa 1 - 2 puff INHALATION RT-Q6H PRN 05/24/16 History Inhaler] Albuterol Nebulized [Ventolin 2.5 mg INHALATION RT-Q6H PRN 05/24/16 09/05/16 History Nebulized] Calcium Carbonate [Tums] 1,000 mg PO DAILY 05/24/16 09/05/16 History Cholecalciferol [Vitamin D3] 2,000 unit PO DAILY 05/24/16 09/05/16 History Dexamethasone [Hexadrol] 4 mg PO DAILY 05/24/16 09/05/16 History Methylphenidate HCl [Ritalin] 20 mg PO DAILY 05/24/16 09/05/16 History Oxybutynin Chloride [Ditropan XL] 15 mg PO DAILY 09/05/16 09/05/16 History levETIRAcetam [Keppra] 1,000 mg PO Q12HR 09/05/16 09/05/16 History Allergies Allergy/AdvReac Type Severity Reaction Status Date / Time No Known Allergies Allergy Verified 09/05/16 10:32 Physical Exam Vitals: Vital Signs Temp Pulse Resp BP Pulse Ox 09/05/16 12:50 99.3 F 96 18 121/68 98 09/05/16 11:57 110 H 18 111/73 97 09/05/16 11:00 122 H 18 116/79 98 09/05/16 10:07 100.5 F H 142 H 20 124/81 96 Intake and Output 09/04/16 09/05/16 09/05/16 22:59 06:59 14:59 Other: Weight 59.421 kg Patient Weight 09/06/16 06:59 Weight 59.421 kg Physical exam Gen. appearance oriented 3 in no distress Neck is supple no JVD Lungs good air entry clear to auscultation no rhonchi or wheezing Heart S1-S2 heard regular rate and rhythm no murmurs appreciated Abdomen is soft nontender no organomegaly bowel sounds are intact Neurologically cranial nerves II-12 grossly intact left-sided weakness noted strength is 3-4 out of 5 noted Skin no abnormalities appreciated Results CBC & Chem 7: 09/05/16 10:30 09/05/16 10:30 Labs: Abnormal Lab Results - Last 24 Hours (Table) 09/05/16 09/05/16 09/05/16 Range/Units 10:30 10:30 10:30 RDW 16.1 H (11.5-15.5) % Plt Count 145 L (150-450) k/uL Neutrophils # (Manual) 8.5 H (1.3-7.7) k/uL Lymphocytes # (Manual) 0.2 L (1.0-4.8) k/uL Potassium 3.3 L (3.5-5.1) mmol/L BUN 24 H (7-17) mg/dL Glucose 136 H (74-99) mg/dL Plasma Lactic Acid Sampson 2.8 H* (0.7-2.0) mmol/L Total Protein 6.2 L (6.3-8.2) g/dL Urine Appearance (Clear) Urine Protein (Negative) Urine Blood (Negative) Urine Nitrite (Negative) Ur Leukocyte Esterase (Negative) Urine WBC (0-5) /hpf Urine WBC Clumps (None) /hpf Urine Bacteria (None) /hpf Urine Mucus (None) /hpf 09/05/16 Range/Units 11:10 RDW (11.5-15.5) % Plt Count (150-450) k/uL Neutrophils # (Manual) (1.3-7.7) k/uL Lymphocytes # (Manual) (1.0-4.8) k/uL Potassium (3.5-5.1) mmol/L BUN (7-17) mg/dL Glucose (74-99) mg/dL Plasma Lactic Acid Sampson (0.7-2.0) mmol/L Total Protein (6.3-8.2) g/dL Urine Appearance Cloudy H (Clear) Urine Protein 1+ H (Negative) Urine Blood Moderate H (Negative) Urine Nitrite Positive H (Negative) Ur Leukocyte Esterase Large H (Negative) Urine WBC 151 H (0-5) /hpf Urine WBC Clumps Moderate H (None) /hpf Urine Bacteria Occasional H (None) /hpf Urine Mucus Few H (None) /hpf Assessment and Plan Plan: #1 sepsis likely secondary to urinary tract infection. #2 glioblastoma multiform with recurrence #3 vasogenic edema #4 history of seizure disorder #5 I hypokalemia #Lactic acidosis #7 adHD #8 hypertension Plan Continue with Rocephin. Patient appears to be doing well Heart rates improved Replace potassium Continue with the current dose of Decadron and GI prophylaxis Patient is to continue wearing her radiofrequency device for GBM Seizure prophylaxis to be reinitiated medications were reconciled. Patient appears to be stable we'll likely discharge the patient next 24 hours with oral antibiotics
[2016-09-05 15:17] VITALS: BMI 23.9
[2016-09-05] MEDS: SODIUM CHLORIDE 0.9% 1,000 ML IV SCH ×2 (16:51→22:06)
[2016-09-05] MEDS ORDERED: ONDANSETRON 4 MG/2 ML VIAL IVP PRN (17:38)
[2016-09-05] MEDS: ACETAMINOPHEN TAB 325 MG TAB PO PRN (18:53)
[2016-09-05] MEDS: POTASSIUM CHLORIDE ER 20 MEQ TAB.ER PO SCH ×3 (18:54→22:06)
[2016-09-05] MEDS: levETIRAcetam 500 MG TAB PO SCH (20:49)
[2016-09-05] MEDS: MONTELUKAST 10 MG TAB PO SCH (20:49)
[2016-09-05] MEDS: CITALOPRAM HYDROBROMIDE 10 MG TAB PO SCH (20:49)
[2016-09-05] MEDS: CALCIUM CARBONATE 500 MG CHEWABLE PO PRN (20:50)
[2016-09-06] MEDS: ACETAMINOPHEN TAB 325 MG TAB PO PRN ×2 (03:11→08:40)
[2016-09-06] MEDS: SODIUM CHLORIDE 0.9% 1,000 ML IV SCH ×2 (06:40→17:36)
[2016-09-06] MEDS: CALCIUM CARBONATE 500 MG CHEWABLE PO PRN (07:35)
[2016-09-06 08:17] LABS: ALT 30 U/L (9-52); AST 19 U/L (14-36); Alkaline Phosphatase 62 U/L (38-126); Anion Gap 7 mmol/L; Blood Urea Nitrogen 11 mg/dL (7-17); Calcium 8.3 mg/dL (8.4-10.2); Carbon Dioxide 21 mmol/L (22-30); Chloride 112 mmol/L (98-107); Glucose 97 mg/dL (74-99); Non-African American GFR(MDRD) >60 (>60 ml/min/1.73 sqM); Potassium 4.2 mmol/L (3.5-5.1); Sodium 140 mmol/L (137-145); Total Bilirubin 0.8 mg/dL (0.2-1.3); Total Protein 5.1 g/dL (6.3-8.2)
[2016-09-06 08:21] LABS: Basophils % (A) 0 %; CH 33.6; CHCM 33.7; Eosinophils % (A) 0 %; HCT 31.9 % (34.0-46.0); HGB 10.4 gm/dL (11.4-16.0); Luc # (Auto) 0.07; Luc % (Auto) 1; Lymphocytes # (A) 0.2 k/uL (1.0-4.8); Lymphocytes % (A) 3 %; MCH 32.5 pg (25.0-35.0); MCHC 32.5 g/dL (31.0-37.0); Macrocytosis Slight; Mean Platelet Volume 6.8; Monocytes # (A) 0.2 k/uL (0-1.0); Monocytes % (A) 3 %; Neutrophils # (A) 5.8 k/uL (1.3-7.7); Neutrophils % (A) 93 %; RBC 3.19 m/uL (3.80-5.40); RDW 15.5 % (11.5-15.5); WBC 6.3 k/uL (3.8-10.6); WBC (Perox) 6.42
[2016-09-06] MEDS: DEXAMETHASONE 4 MG TAB PO SCH (08:29)
[2016-09-06] MEDS: levETIRAcetam 500 MG TAB PO SCH ×2 (08:29→21:43)
[2016-09-06] MEDS ORDERED: PANTOPRAZOLE 40 MG/10 ML VIAL IVP SCH (09:00)
[2016-09-06] MEDS: NYSTATIN 100,000 UNIT/ML SUSP 500,000 UNIT/5 ML CUP PO SCH ×3 (14:27→21:44)
[2016-09-06] MEDS: SALT AND SODA MOUTHWASH 1,000 ML PO SCH ×3 (14:27→21:44)
--- NOTE | 2016-09-06 16:00 | P.PN ---
Subjective 51-year-old female with glioblastoma multiform a with recurrence currently is being treated [facility] with the radiofrequency device on her skull and Flaquita comes into the hospital with watery diarrhea for about 24 hours prior to admission. Patient states that the she has not had anyone else in the family with similar diarrhea no recent antibiotics or reported She also states to have some urinary urgency or frequency. Denies having any headaches nausea chest pain difficulty breathing. Patient was noted to have a fever of 101 was admitted to the hospital was noted to have significant dehydration with a lactic acidosis around 2.4 Patient was given IV fluids a UA did appear to show some bacteria Patient has been given IV fluids per the sepsis protocol Currently states to be doing better has not had a bowel movement in over 67 hours No additional complaints reported A computed tomography scan of the head does show a tumor with vasogenic edema. Patient states that she's had a MRI or 2 weeks ago at the [facility] was reported of similar symptoms. Patient is currently maintained on Decadron for vasogenic edema as well 09/06/16 doing better today no overight events reported complaints of pain in her right flank Physical exam Gen. appearance oriented 3 in no distress Neck is supple no JVD Lungs good air entry clear to auscultation no rhonchi or wheezing Heart S1-S2 heard regular rate and rhythm no murmurs appreciated Abdomen is soft nontender no organomegaly bowel sounds are intact Neurologically cranial nerves II-12 grossly intact left-sided weakness noted strength is 3-4 out of 5 noted Skin no abnormalities appreciated Objective - Vital Signs Vital signs: Vital Signs Temp 98.0 F 09/06/16 15:00 Pulse 87 09/06/16 15:00 Resp 20 09/06/16 15:00 BP 112/68 09/06/16 15:00 Pulse Ox 94 L 09/06/16 15:00 Intake & Output 09/05/16 09/06/16 09/06/16 18:59 06:59 18:59 Weight 57.5 kg Other: Voiding Method Diaper Diaper Bedside Commode Diaper Incontinent # Voids 2 5 1 # Bowel Movements 0 - Labs CBC & Chem 7: 09/06/16 07:21 09/06/16 07:21 Labs: Abnormal Lab Results - Last 24 Hours (Table) 09/06/16 09/06/16 Range/Units 07:21 07:21 RBC 3.19 L (3.80-5.40) m/uL Hgb 10.4 L (11.4-16.0) gm/dL Hct 31.9 L (34.0-46.0) % Plt Count 94 L (150-450) k/uL Lymphocytes # 0.2 L (1.0-4.8) k/uL Chloride 112 H (98-107) mmol/L Carbon Dioxide 21 L (22-30) mmol/L Calcium 8.3 L (8.4-10.2) mg/dL Total Protein 5.1 L (6.3-8.2) g/dL Albumin 2.7 L (3.5-5.0) g/dL Microbiology - Last 24 Hours (Table) 09/05/16 11:10 Urine Culture - Preliminary Urine,Catheterized Gram Neg Bacilli 09/05/16 10:30 Blood Culture Gram Stain - Preliminary Blood Blood Culture - Preliminary 09/05/16 10:30 Blood Culture - Preliminary Blood Assessment and Plan Plan: #1 sepsis likely secondary to urinary tract infection.with gram negative bacteremia. await cultures and repeat blood culture #2 glioblastoma multiform with recurrence #3 vasogenic edema #4 history of seizure disorder #5 I hypokalemia #Lactic acidosis #7 adHD #8 hypertension Plan Continue with Rocephin. will repeat a blood culture today Replace potassium Continue with the current dose of Decadron and GI prophylaxis Patient is to continue wearing her radiofrequency device for GBM
--- NOTE | 2016-09-06 17:26 | P.CONS ---
History of Present Illness - Reason for Consult Consult date: 09/06/16 Oncology Care Requesting physician: Gigi Smith - Chief Complaint fever, vomiting - History of Present Illness Mrs. Mccurdy is a very pleasant female pt with a history of GBM, she is due to have her last Temodar treatment in a few weeks, she is going to delay final cycle 1 week due to family democrat, she will be completing 1 year of therapy , she is also currently on new treatment with radio waves-she has electrodes connected to her head and she must be plugged into the device for 18/24 hours in a day, this is to bombard the tumor. She completed last oral Temodar 5 day monthly cycle about 2 weeks ago. Starting Tuesday pt had vomiting fever and diarrhea, she has had episodes of illness before and her left side gets more weak, she did fall 3-4 times at home. No oral irritation, dysphagia, cough, SOB , wheezing, nasal or sinus pressure, she has some right side pain but thinks she fell on a stool, no dysuria, hematuria, no BM today, no swelling or pain. Her noted a coated tongue. Review of Systems All systems: negative Constitutional: Reports as per HPI Past Medical History Past Medical History: Asthma, Cancer, Diabetes Mellitus, Eye Disorder, Fibromyalgia, GERD/Reflux, Memory Impairment, Musculoskeletal Disorder, Seizure Disorder Additional Past Medical History / Comment(s): EPILEPSY RESOLVED WITH SURGERY, glioblastoma diagnosed 06/13/2015 with radiation tx 6weeks and chemo oraltx last dose 2 weeks ago. UTI History of Any Multi-Drug Resistant Organisms: None Reported Additional Past Surgical History / Comment(s): BRAIN SURGERY X2 Past Anesthesia/Blood Transfusion Reactions: No Reported Reaction Past Psychological History: ADD/ADHD, Anxiety Smoking Status: Never smoker - Past Family History Mother Family Medical History: Thyroid Disorder Father Family Medical History: Myocardial Infarction ([place]) Additional Family Medical History / Comment(s): epilepsy Medications and Allergies Home Medications Medication Instructions Recorded Confirmed Type Citalopram Hydrobromide [CeleXA] 10 mg PO HS 06/13/15 09/05/16 History Montelukast Sodium [Singulair] 10 mg PO HS 06/13/15 09/05/16 History Albuterol Inhaler [Ventolin Hfa 1 - 2 puff INHALATION RT-Q6H PRN 05/24/16 History Inhaler] Albuterol Nebulized [Ventolin 2.5 mg INHALATION RT-Q6H PRN 05/24/16 09/05/16 History Nebulized] Calcium Carbonate [Tums] 1,000 mg PO DAILY 05/24/16 09/05/16 History Cholecalciferol [Vitamin D3] 2,000 unit PO DAILY 05/24/16 09/05/16 History Dexamethasone [Hexadrol] 4 mg PO DAILY 05/24/16 09/05/16 History Methylphenidate HCl [Ritalin] 20 mg PO DAILY 05/24/16 09/05/16 History Oxybutynin Chloride [Ditropan XL] 15 mg PO DAILY 09/05/16 09/05/16 History levETIRAcetam [Keppra] 1,000 mg PO Q12HR 09/05/16 09/05/16 History Allergies Allergy/AdvReac Type Severity Reaction Status Date / Time No Known Allergies Allergy Verified 09/05/16 10:32 Physical Exam Vitals: Vital Signs Temp Pulse Pulse Resp BP BP Pulse Ox 09/06/16 08:00 18 09/06/16 07:00 98.1 F 88 18 133/79 94 L 09/05/16 23:00 98.6 F 97 16 102/59 93 L 09/05/16 14:26 99.2 F 97 20 108/63 96 09/05/16 12:50 99.3 F 96 18 121/68 98 Intake and Output 09/05/16 09/06/16 09/06/16 22:59 06:59 14:59 Other: Voiding Method Diaper Bedside Commode Diaper Incontinent # Voids 4 5 2 Weight 57.5 kg - Constitutional General appearance: average body habitus, cooperative, no acute distress - EENT Eyes: anicteric sclerae, EOMI, normal appearance ENT: thrush - Neck Neck: no lymphadenopathy - Respiratory Respiratory: left: rales (few, lower lobe), bilateral: CTA - Cardiovascular Rhythm: regular Heart sounds: normal: S1, S2 Abnormal Heart Sounds: no systolic murmur, no diastolic murmur, no rub, no S3 Gallop, no S4 Gallop, no click, no other leg Peripheral Edema: bilateral: None - Gastrointestinal General gastrointestinal: no absent bowel sounds, no decreased bowel sounds, no distended, no hepatomegaly, no hyperactive bowel sounds, normal bowel sounds, no organomegaly, no rigid, no scaphoid, soft, no splenomegaly, no tenderness, no umbilical hernia, no ventral hernia - Integumentary Integumentary: normal - Neurologic LLE 2/5 strength, LUE 3/5 strength, has to be prompted verbally to release left hand grasp, right upper and lower extremity 4/5 strength Neurologic: focal deficits - Musculoskeletal Musculoskeletal: generalized weakness, left sided weakness - Psychiatric Psychiatric: A&O x's 3, appropriate affect, intact judgment & insight Results CBC & Chem 7: 09/06/16 07:21 09/06/16 07:21 Labs: Abnormal Lab Results - Last 24 Hours (Table) 09/06/16 09/06/16 Range/Units 07:21 07:21 RBC 3.19 L (3.80-5.40) m/uL Hgb 10.4 L (11.4-16.0) gm/dL Hct 31.9 L (34.0-46.0) % Plt Count 94 L (150-450) k/uL Lymphocytes # 0.2 L (1.0-4.8) k/uL Chloride 112 H (98-107) mmol/L Carbon Dioxide 21 L (22-30) mmol/L Calcium 8.3 L (8.4-10.2) mg/dL Total Protein 5.1 L (6.3-8.2) g/dL Albumin 2.7 L (3.5-5.0) g/dL Microbiology - Last 24 Hours (Table) 09/05/16 10:30 Blood Culture Gram Stain - Preliminary Blood Blood Culture - Preliminary 09/05/16 10:30 Blood Culture - Preliminary Blood 09/05/16 11:10 Urine Culture - Preliminary Urine,Catheterized CT Scan - head: report reviewed Assessment and Plan (1) Glioblastoma Narrative/Plan: Pt will continue with radio frequency therapy as directed by Daryl, she has plans to complete temodar in the next few weeks so, as long has pt has recovered from her current illness she should be able to finish therapy. will contact Daryl with any concerns prior to completing treatment. Status: Chronic (2) UTI (urinary tract infection) Narrative/Plan: Pt is on abx therapy Status: Acute (3) Weakness generalized Narrative/Plan: Left sided weakness, pt states this is not uncommon when pt gets ill to have worsening left sided weakness, no acute intervention, PT has already been ordered. Status: Chronic (4) Bicytopenia Narrative/Plan: Mild anemia and thrombocytopenia, likely effect from treatment and concurrent infection, WBC and ANC adequate. Will monitor CBC, no acute intervention needed. Status: Acute
[2016-09-06] MEDS ORDERED: OXYBUTYNIN 15 MG TAB.ER.24 PO SCH ×2 (21:00)
[2016-09-06] MEDS ORDERED: OXYBUTYNIN CHLORIDE 5 MG TAB PO SCH (21:00)
[2016-09-06] MEDS: CITALOPRAM HYDROBROMIDE 10 MG TAB PO SCH (21:43)
[2016-09-06] MEDS: MONTELUKAST 10 MG TAB PO SCH (21:44)
[2016-09-06] MEDS: OXYBUTYNIN 15 MG TAB.ER.24 PO SCH (21:44)
[2016-09-07] MEDS: SODIUM CHLORIDE 0.9% 1,000 ML IV SCH ×3 (03:18→18:04)
[2016-09-07] MEDS: PANTOPRAZOLE 40 MG TABLET PO SCH (08:03)
[2016-09-07] MEDS: NYSTATIN 100,000 UNIT/ML SUSP 500,000 UNIT/5 ML CUP PO SCH ×4 (08:04→23:03)
[2016-09-07] MEDS: DEXAMETHASONE 4 MG TAB PO SCH (08:04)
[2016-09-07] MEDS: SALT AND SODA MOUTHWASH 1,000 ML PO SCH ×4 (08:04→23:32)
[2016-09-07] MEDS: levETIRAcetam 500 MG TAB PO SCH ×2 (08:04→23:03)
[2016-09-07] MEDS: ACETAMINOPHEN TAB 325 MG TAB PO PRN (08:12)
[2016-09-07 08:38] LABS: Basophils % (A) 0 %; CH 33.7; CHCM 33.8; Eosinophils % (A) 0 %; HDW 3.23; HGB 9.8 gm/dL (11.4-16.0); Luc # (Auto) 0.11; Luc % (Auto) 2; Lymphocytes # (A) 0.3 k/uL (1.0-4.8); Lymphocytes % (A) 4 %; MCH 32.8 pg (25.0-35.0); MCHC 32.8 g/dL (31.0-37.0); MCV 99.9 fL (80.0-100.0); Macrocytosis Slight; Monocytes # (A) 0.2 k/uL (0-1.0); Monocytes % (A) 2 %; Neutrophils # (A) 6.1 k/uL (1.3-7.7); Neutrophils % (A) 92 %; RDW 15.5 % (11.5-15.5); WBC 6.6 k/uL (3.8-10.6); WBC (Perox) 7.19
[2016-09-07 09:10] LABS: ALT 31 U/L (9-52); AST 14 U/L (14-36); Alkaline Phosphatase 69 U/L (38-126); Anion Gap 7 mmol/L; Blood Urea Nitrogen 9 mg/dL (7-17); Calcium 8.4 mg/dL (8.4-10.2); Carbon Dioxide 22 mmol/L (22-30); Chloride 110 mmol/L (98-107); Glucose 130 mg/dL (74-99); Non-African American GFR(MDRD) >60 (>60 ml/min/1.73 sqM); Potassium 3.6 mmol/L (3.5-5.1); Sodium 139 mmol/L (137-145); Total Bilirubin 0.5 mg/dL (0.2-1.3); Total Protein 5.2 g/dL (6.3-8.2)
--- NOTE | 2016-09-07 16:56 | P.CONS ---
History of Present Illness - Chief Complaint Medical debility - History of Present Illness I had the op to see patient for inpatient rehab consultation with regard to medical debility. She is known to me from GBM and chronic pain management. Receive prescription for [place] 5, 60 tabs, in March. He has infrequent need for them. Admitted September 05 with dehydration. Current diagnoses sepsis and possible UTI and brain vasogenic edema. PT reports maximal assistance for bed mobility minimal assistance for gait 4 feet with roller walker. Chest x-ray negative. Head CT with white matter edema and a leftward shift that is stable. Previous functional history as elicited from patient: 51-year-old right-handed white female who is lives in one floor home with . And one kid. Doesn't smoke or drink. Independent with cooking, laundry, sitdown shower and gait with [address] Dr. Trent is regular doctor. Review of Systems Review of systems: ENT: Denies sneezes or discharge. Eyes: Denies discharge or photophobia. Cardiac: Denies chest pain or palpitation. Pulmonary: Denies cough or shortness of breath. Breast: Denies discharge or lumps. Gastrointestinal: Denies nausea, emesis, constipation, diarrhea. Genitourinary: Denies discharge or frequency. Musculoskeletal: Discomfort and right hip and ribs. Neurologic: At least mild generalized weakness. Endocrine: Denies shakes or sweats. Oncology: Denies cancers. Dermatologic: Denies rash, itching, pruritus. ALLERGY/immunology: Denies sneezes, rashes. Past Medical History Past Medical History: Asthma, Cancer, Diabetes Mellitus, Eye Disorder, Fibromyalgia, GERD/Reflux, Memory Impairment, Musculoskeletal Disorder, Seizure Disorder Additional Past Medical History / Comment(s): EPILEPSY RESOLVED WITH SURGERY, glioblastoma diagnosed 06/13/2015 with radiation tx 6weeks and chemo oraltx last dose 2 weeks ago. UTI History of Any Multi-Drug Resistant Organisms: None Reported Additional Past Surgical History / Comment(s): BRAIN SURGERY X2 Past Anesthesia/Blood Transfusion Reactions: No Reported Reaction Past Psychological History: ADD/ADHD, Anxiety Smoking Status: Never smoker - Past Family History Mother Family Medical History: Thyroid Disorder Father Family Medical History: Myocardial Infarction ([place]) Additional Family Medical History / Comment(s): epilepsy Medications and Allergies Home Medications Medication Instructions Recorded Confirmed Type Citalopram Hydrobromide [CeleXA] 10 mg PO HS 06/13/15 09/05/16 History Montelukast Sodium [Singulair] 10 mg PO HS 06/13/15 09/05/16 History Albuterol Inhaler [Ventolin Hfa 1 - 2 puff INHALATION RT-Q6H PRN 05/24/16 History Inhaler] Albuterol Nebulized [Ventolin 2.5 mg INHALATION RT-Q6H PRN 05/24/16 09/05/16 History Nebulized] Calcium Carbonate [Tums] 1,000 mg PO DAILY 05/24/16 09/05/16 History Cholecalciferol [Vitamin D3] 2,000 unit PO DAILY 05/24/16 09/05/16 History Dexamethasone [Hexadrol] 4 mg PO DAILY 05/24/16 09/05/16 History Methylphenidate HCl [Ritalin] 20 mg PO DAILY 05/24/16 09/05/16 History Oxybutynin Chloride [Ditropan XL] 15 mg PO DAILY 09/05/16 09/05/16 History levETIRAcetam [Keppra] 1,000 mg PO Q12HR 09/05/16 09/05/16 History Allergies Allergy/AdvReac Type Severity Reaction Status Date / Time No Known Allergies Allergy Verified 09/05/16 10:32 Physical Exam Vitals: Vital Signs Temp Pulse Resp BP Pulse Ox 09/07/16 15:00 99.2 F 84 19 106/67 94 L 09/07/16 07:00 97.5 F L 80 19 119/73 96 09/06/16 23:00 98.8 F 97 16 115/70 95 09/06/16 17:56 87 Intake and Output 09/07/16 09/07/16 09/07/16 06:59 14:59 22:59 Intake Total 250 Balance 250 Intake: Oral 250 Other: Voiding Method Bedside Commode Diaper Incontinent # Voids 3 2 # Bowel Movements 1 Skin: Good color, texture, turgor. General: Overweight and comfortable appearance. Head: Normocephalic, atraumatic. Eyes: Symmetric. Pupils equal round. Ears: Symmetric. Hearing within normal limits. Mouth: Clear. Neck: Supple. Carotid without bruit. Cardiac: Regular rate and rhythm. Lungs: Clear anteriorly and posteriorly. Abdomen: Soft active nontender overweight. Extremities: Normal tone. Edema noted forelegs and feet Neurological: Mental status: Alert, cooperative, pleasant. Cranial nerves: Symmetric facial tone and trapezius. Motor: Active movement throughout but greater than antigravity in arms and less than antigravity in legs. Sensation: Intact throughout. DTRs: Symmetric and equal throughout. Mobility: Reports receiving assistance for transfer to bedside commode. Results CBC & Chem 7: 09/07/16 08:08 09/07/16 08:08 Labs: Abnormal Lab Results - Last 24 Hours (Table) 09/07/16 09/07/16 Range/Units 08:08 08:08 RBC 3.00 L (3.80-5.40) m/uL Hgb 9.8 L (11.4-16.0) gm/dL Hct 30.0 L (34.0-46.0) % Plt Count 100 L (150-450) k/uL Lymphocytes # 0.3 L (1.0-4.8) k/uL Chloride 110 H (98-107) mmol/L Creatinine 0.51 L (0.52-1.04) mg/dL Glucose 130 H (74-99) mg/dL Total Protein 5.2 L (6.3-8.2) g/dL Albumin 2.7 L (3.5-5.0) g/dL Microbiology - Last 24 Hours (Table) 09/05/16 13:48 Blood Culture - Preliminary Blood No Growth after 48 hours 09/05/16 11:10 Urine Culture - Final Urine,Catheterized Escherichia coli 09/05/16 10:30 Blood Culture Gram Stain - Preliminary Blood Blood Culture - Preliminary Gram Neg Bacilli Chest x-ray: report reviewed (Negative.) CT Scan - head: report reviewed (White matter change and edema. Leftward shift that is stable.) Assessment and Plan (1) Severe sepsis Status: Acute Plan: Impression: 1. Medical debility. 2. Sepsis. 3. GBM. 4. Asthma. 5. Diabetes. 6. Fibromyalgia. 7. Memory problem. 8. Reflux. 9. Seizure. Constant plan: PT ongoing. I've added OT. Safety concerns identified currently. Have discussed possible inpatient rehab with patient's.
--- NOTE | 2016-09-07 18:15 | P.PN ---
Subjective Date of service 09/07/2016. Progress note being dictated for . Interval history: This a 51-year-old female admitted with UTI with sepsis, gram-negative bacteremia, repeat cultures pending, vasogenic edema on Decadron, glioblastoma multiform with recurrence. Patient wearing her radiofrequency device for GBM. Continues on Rocephin. Feeling better today. Consuming 50% of diet. Denies nausea vomiting or diarrhea. T-max 99.2. Objective - Vital Signs Vital signs: Vital Signs Temp 99.2 F 09/07/16 15:00 Pulse 84 09/07/16 15:00 Resp 19 09/07/16 15:00 BP 106/67 09/07/16 15:00 Pulse Ox 94 L 09/07/16 15:00 Intake & Output 09/06/16 09/07/16 09/07/16 18:59 06:59 18:59 Intake Total 250 Balance 250 Weight 57.5 kg Intake: Oral 250 Other: Voiding Method Bedside Commode Bedside Commode Incontinent Diaper Diaper Incontinent Incontinent # Voids 1 3 2 # Bowel Movements 0 1 - Exam PHYSICAL EXAM: VITAL SIGNS: As above GENERAL: [Sitting up in bed, no acute distress] HEENT: [Pupils equal conjunctiva normal. Oral mucosa moist] NECK: [Supple, no JVD] RESPIRATORY EFFORT:[ Normal] LUNGS: [Essentially clear, bilateral bases diminished, no wheezes rhonchi or crackles] CARDIOVASCULAR[ regular S1 and S2, no murmurs rubs or gallops. No edema] GI: [Abdomen soft, nontender, positive bowel sounds. No guarding, no rigidity] PSYCH: [Alert and oriented -3, mood and affect normal.] NEURO: No focal deficits, cranial nerves II through XII grossly intact. Left sided extremity weakness, 3 out of 5 strength. - Labs CBC & Chem 7: 09/07/16 08:08 09/07/16 08:08 Labs: Abnormal Lab Results - Last 24 Hours (Table) 09/07/16 09/07/16 Range/Units 08:08 08:08 RBC 3.00 L (3.80-5.40) m/uL Hgb 9.8 L (11.4-16.0) gm/dL Hct 30.0 L (34.0-46.0) % Plt Count 100 L (150-450) k/uL Lymphocytes # 0.3 L (1.0-4.8) k/uL Chloride 110 H (98-107) mmol/L Creatinine 0.51 L (0.52-1.04) mg/dL Glucose 130 H (74-99) mg/dL Total Protein 5.2 L (6.3-8.2) g/dL Albumin 2.7 L (3.5-5.0) g/dL Microbiology - Last 24 Hours (Table) 09/05/16 13:48 Blood Culture - Preliminary Blood No Growth after 48 hours 09/05/16 11:10 Urine Culture - Final Urine,Catheterized Escherichia coli 09/05/16 10:30 Blood Culture Gram Stain - Preliminary Blood Blood Culture - Preliminary Gram Neg Bacilli Assessment and Plan Plan: #1 sepsis likely secondary to urinary tract infection.with gram negative bacteremia. await repeat blood culture #2 glioblastoma multiform with recurrence #3 vasogenic edema on Decadron #4 history of seizure disorder #5 I hypokalemia #Lactic acidosis #7 adHD #8 hypertension Plan: Continue on current medication regime, antibiotics, Decadron, GI prophylaxis, monitoring and symptomatic treatment. Continue on Rocephin, await final culture results. PT/OT. Close monitoring of electrolytes, hemoglobin with repeat labs ordered for a.m. further recommendations to follow. The impression and plan of care has been dictated as directed. : I performed a H&P examination of this patient and discussed the same with the dictator. I agree with the dictator's note. Any additional findings/opinions/ etc. will be noted.
[2016-09-07] MEDS: CITALOPRAM HYDROBROMIDE 10 MG TAB PO SCH (23:02)
[2016-09-07] MEDS: MONTELUKAST 10 MG TAB PO SCH (23:03)
[2016-09-07] MEDS: OXYBUTYNIN 15 MG TAB.ER.24 PO SCH (23:03)
[2016-09-08] MEDS: SODIUM CHLORIDE 0.9% 1,000 ML IV SCH ×3 (06:34→20:47)
[2016-09-08] MEDS: PANTOPRAZOLE 40 MG TABLET PO SCH (08:04)
[2016-09-08] MEDS: SALT AND SODA MOUTHWASH 1,000 ML PO SCH ×4 (08:05→20:45)
[2016-09-08] MEDS: DEXAMETHASONE 4 MG TAB PO SCH (08:05)
[2016-09-08] MEDS: NYSTATIN 100,000 UNIT/ML SUSP 500,000 UNIT/5 ML CUP PO SCH ×4 (08:06→20:46)
[2016-09-08] MEDS: levETIRAcetam 500 MG TAB PO SCH ×2 (08:06→20:45)
--- NOTE | 2016-09-08 14:08 | P.DS ---
Providers Date of admission: 09/05/16 12:58 Expected date of discharge: 09/08/16 Attending physician: MD Dr. Matthias Barajas Consults: 09/05/16 12:58 Consult Physician Stat Consulting Provider: Christiano Xavier Consult Reason/Comments: Oncological care Do you want consulting provider notified?: Already Contacted 09/07/16 15:43 Consult Physician Routine Consulting Provider: Hilton Sarah Consult Reason/Comments: eval for inpatient rehab Do you want consulting provider notified?: Yes Primary care physician: Russ Vaughan [facility] Course: #1 sepsis secondary to acute E Coli urinary tract infection and E-Coli bacteremia. #2 glioblastoma multiform with recurrence #3 vasogenic edema on Decadron #4 history of seizure disorder #5 Lactic acidosis #6 adHD #7 hypertension This a 51-year-old female admitted with sepsis with acute E Coli UTI, E. Coli bacteremia, repeat blood cultures negative, vasogenic edema on Decadron, glioblastoma multiform with recurrence. Patient wearing her radiofrequency device for GBM. Evaluated by oncology, Dr. Xavier. Maintained on rocephin, Decadron and IV fluid hydration. Significant clinical improvement. Evaluated by Dr. Sarah from [facility] inpatient rehab. Patient will be discharged to [facility] inpatient rehab in a stable condition with guarded prognosis and will complete 11 more days of Cipro to complete a total of 14 days antibiotic tx. Microbiology 09/05/16 10:30 Blood Blood Culture - Final 09/05/16 10:30 Blood Blood Culture Gram Stain - Final 09/05/16 10:30 Blood Blood Culture - Final Escherichia coli 09/06/16 16:16 Blood Blood Culture - Preliminary No Growth after 24 hours 09/05/16 13:48 Blood Blood Culture - Preliminary No Growth after 48 hours 09/05/16 11:10 Urine,Catheterized Urine Culture - Final Escherichia coli The impression and plan of care has been dictated as directed as a scribe. : I performed a H&P examination of this patient and discussed the same with the dictator. I agree with the dictator's note. Any additional findings/opinions/ etc. will be noted. Patient Condition at Discharge: Stable Plan - Discharge Summary New Discharge Prescriptions: New Ciprofloxacin HCl [Cipro] 500 mg PO Q12HR #22 tablet Nystatin 100,000 Unit/ml Susp [Mycostatin Oral Susp] 5 ml PO QID #40 ml Pantoprazole [Protonix] 40 mg PO AC-BRKFST tab Continue Montelukast Sodium [Singulair] 10 mg PO HS Citalopram Hydrobromide [CeleXA] 10 mg PO HS Methylphenidate HCl [Ritalin] 20 mg PO DAILY Albuterol Nebulized [Ventolin Nebulized] 2.5 mg INHALATION RT-Q6H PRN PRN Reason: Shortness Of Breath Albuterol Inhaler [Ventolin Hfa Inhaler] 1 - 2 puff INHALATION RT-Q6H PRN PRN Reason: Shortness Of Breath Cholecalciferol [Vitamin D3] 2,000 unit PO DAILY Calcium Carbonate [Tums] 1,000 mg PO DAILY Dexamethasone [Hexadrol] 4 mg PO DAILY levETIRAcetam [Keppra] 1,000 mg PO Q12HR Oxybutynin Chloride [Ditropan XL] 15 mg PO DAILY Discharge Medication List Citalopram Hydrobromide [CeleXA] 10 mg PO HS 06/13/15 [History] Montelukast Sodium [Singulair] 10 mg PO HS 06/13/15 [History] Albuterol Inhaler [Ventolin Hfa Inhaler] 1 - 2 puff INHALATION RT-Q6H PRN [History] Albuterol Nebulized [Ventolin Nebulized] 2.5 mg INHALATION RT-Q6H PRN 05/24/16 [ History] Calcium Carbonate [Tums] 1,000 mg PO DAILY 05/24/16 [History] Cholecalciferol [Vitamin D3] 2,000 unit PO DAILY 05/24/16 [History] Dexamethasone [Hexadrol] 4 mg PO DAILY 05/24/16 [History] Methylphenidate HCl [Ritalin] 20 mg PO DAILY 05/24/16 [History] Oxybutynin Chloride [Ditropan XL] 15 mg PO DAILY 09/05/16 [History] levETIRAcetam [Keppra] 1,000 mg PO Q12HR 09/05/16 [History] Ciprofloxacin HCl [Cipro] 500 mg PO Q12HR #22 tablet 09/08/16 [Rx] Nystatin 100,000 Unit/ml Susp [Mycostatin Oral Susp] 5 ml PO QID #40 ml [Rx] Pantoprazole [Protonix] 40 mg PO AC-BRKFST tab 09/08/16 [Rx] Follow up Appointment(s)/Referral(s): Russ Trent III, MD [Primary Care Provider] - 3 Days (after dc from ECF) Hilton Sarah MD [STAFF PHYSICIAN] - 3 Days (while at rehab) Christiano Xavier MD [STAFF PHYSICIAN] - 1 Week Patient Instructions/Handouts: Urinary Tract Infection in Women (DC) Activity/Diet/Wound Care/Special Instructions: [facility] IP Rehab cbc,bmp in 3 days Regular diet. Activity as tolerated, fall precautions. Discharge Disposition: TRANSFER TO SNF/ECF
[2016-09-08] MEDS: CIPROFLOXACIN HCL 500 MG TAB PO SCH (20:44)
[2016-09-08] MEDS: MONTELUKAST 10 MG TAB PO SCH (20:45)
[2016-09-08] MEDS: CITALOPRAM HYDROBROMIDE 10 MG TAB PO SCH (20:45)
[2016-09-08] MEDS: OXYBUTYNIN 15 MG TAB.ER.24 PO SCH (20:45)
[2016-09-08] MEDS: ACETAMINOPHEN TAB 325 MG TAB PO PRN (20:52)
--- NOTE | 2016-09-08 22:48 | P.PN ---
Subjective Date of service 09/08/2016. Progress note being dictated for . Interval history: This a 51-year-old female admitted with sepsis, acute Ecoli UTI, E- coli bacteremia, repeat cultures negative at 24 & 48 hrs, vasogenic edema on Decadron, glioblastoma multiform with recurrence. Maintained on Rocephin. Feels stronger today, improving diet intake. Denies nausea vomiting or diarrhea. T-max 99.7. Hemoglobin 9.8. Evaluated by Dr. Sarah for inpatient rehab, final recommendations pending. Objective - Vital Signs Vital signs: Vital Signs Temp 98.9 F 09/08/16 07:00 Pulse 61 09/08/16 07:00 Resp 16 09/08/16 08:00 BP 121/75 09/08/16 07:00 Pulse Ox 94 L 09/08/16 07:00 Intake & Output 09/07/16 09/08/16 09/08/16 18:59 06:59 18:59 Intake Total 250 550 Balance 250 550 Intake: Oral 250 550 Other: Voiding Method Incontinent Incontinent Incontinent # Voids 2 5 3 # Bowel Movements 1 - Exam PHYSICAL EXAM: VITAL SIGNS: As above GENERAL: [Sitting up in bed, no acute distress] HEENT: [Pupils equal conjunctiva normal. No conjunctival pallor. Oral thrush. NECK: [Supple, no JVD] RESPIRATORY EFFORT:[ Normal] LUNGS: [Essentially clear, bilateral bases diminished, no wheezes rhonchi or crackles] CARDIOVASCULAR[ regular S1 and S2, no murmurs rubs or gallops. No edema] GI: [Abdomen soft, nontender, positive bowel sounds. No guarding, no rigidity] PSYCH: [Alert and oriented -3, mood and affect normal.] NEURO: No focal deficits, cranial nerves II through XII grossly intact. Left sided extremity weakness, 3.5 out of 5 strength. Microbiology 09/06/16 16:16 Blood Blood Culture - Preliminary No Growth after 48 hours 09/05/16 13:48 Blood Blood Culture - Preliminary No Growth after 72 hours 09/05/16 10:30 Blood Blood Culture - Final 09/05/16 10:30 Blood Blood Culture Gram Stain - Final 09/05/16 10:30 Blood Blood Culture - Final Escherichia coli 09/05/16 11:10 Urine,Catheterized Urine Culture - Final Escherichia coli - Labs CBC & Chem 7: 09/07/16 08:08 09/07/16 08:08 Labs: Microbiology - Last 24 Hours (Table) 09/05/16 10:30 Blood Culture - Final Blood 09/05/16 10:30 Blood Culture Gram Stain - Final Blood Blood Culture - Final Escherichia coli 09/06/16 16:16 Blood Culture - Preliminary Blood No Growth after 24 hours 09/05/16 13:48 Blood Culture - Preliminary Blood No Growth after 48 hours Assessment and Plan Plan: #1 sepsis secondary to acute Ecoli urinary tract infection.with Ecoli bacteremia. #2 glioblastoma multiform with recurrence #3 vasogenic edema on Decadron #4 history of seizure disorder #5 hypokalemia #Lactic acidosis #7 adHD #8 hypertension #9 oral thrush #10 bicytopenia Plan: Continue on current medication regime, antibiotics, Decadron, GI prophylaxis, monitoring and symptomatic treatment. Continue on Rocephin. PT/ OT. Close monitoring of electrolytes and CBC with repeat labs ordered for a.m. Recommendations/preauthorization pending. Discharge planning in progress for tomorrow. The impression and plan of care has been dictated as directed. : I performed a H&P examination of this patient and discussed the same with the dictator. I agree with the dictator's note. Any additional findings/opinions/ etc. will be noted.
[2016-09-08] MEDS ORDERED: Potassium Replacement Protocol 1 EACH MISC MISCELLANE PRN (22:49)
[2016-09-09] MEDS: SODIUM CHLORIDE 0.9% 1,000 ML IV SCH (06:16)
[2016-09-09 07:50] VITALS: BP 127/77; PULSE 52; RESP 20; TEMP 97.4
[2016-09-09] MEDS: DEXAMETHASONE 4 MG TAB PO SCH (08:28)
[2016-09-09] MEDS: PANTOPRAZOLE 40 MG TABLET PO SCH (08:28)
[2016-09-09] MEDS: CIPROFLOXACIN HCL 500 MG TAB PO SCH (08:28)
[2016-09-09] MEDS: levETIRAcetam 500 MG TAB PO SCH (08:29)
[2016-09-09] MEDS: NYSTATIN 100,000 UNIT/ML SUSP 500,000 UNIT/5 ML CUP PO SCH (08:29)
[2016-09-09] MEDS: SALT AND SODA MOUTHWASH 1,000 ML PO SCH (08:30)
[2016-09-09 08:38] LABS: Basophils % (A) 0 %; CH 33.2; Eosinophils % (A) 0 %; HCT 32.5 % (34.0-46.0); HDW 3.09; HGB 10.1 gm/dL (11.4-16.0); Hypochromasia Slight; Luc # (Auto) 0.07; Luc % (Auto) 2; Lymphocytes # (A) 0.2 k/uL (1.0-4.8); Lymphocytes % (A) 7 %; MCH 32.2 pg (25.0-35.0); MCHC 31.1 g/dL (31.0-37.0); MCV 103.7 fL (80.0-100.0); Macrocytosis Moderate; Mean Platelet Volume 7.3; Monocytes # (A) 0.2 k/uL (0-1.0); Monocytes % (A) 4 %; Neutrophils # (A) 3.1 k/uL (1.3-7.7); Neutrophils % (A) 87 %; RBC 3.13 m/uL (3.80-5.40); RDW 15.5 % (11.5-15.5); WBC 3.6 k/uL (3.8-10.6); WBC (Perox) 3.76
[2016-09-09 08:53] LABS: Anion Gap 10 mmol/L; Blood Urea Nitrogen 12 mg/dL (7-17); Calcium 8.7 mg/dL (8.4-10.2); Carbon Dioxide 23 mmol/L (22-30); Chloride 107 mmol/L (98-107); Glucose 106 mg/dL (74-99); Magnesium 1.8 mg/dL (1.6-2.3); Non-African American GFR(MDRD) >60 (>60 ml/min/1.73 sqM); Potassium 3.1 mmol/L (3.5-5.1); Sodium 140 mmol/L (137-145)
== END 2016-09-09 08:45 | DRG 871 ==
LOC: EC 10:04 → 4MS4W 12:58
PROVIDERS: ADMIT Internal Medicine; ATTEND Internal Medicine
DX: A41.51 Sepsis due to Escherichia coli [E. coli] (principal); G93.6 Cerebral edema; E87.2 Acidosis; C71.9 Malignant neoplasm of brain, unspecified; D69.6 Thrombocytopenia, unspecified; B37.0 Candidal stomatitis; N39.0 Urinary tract infection, site not specified; D64.9 Anemia, unspecified; E87.6 Hypokalemia; F90.9 Attention-deficit hyperactivity disorder, unspecified type; I10 Essential (primary) hypertension; M79.7 Fibromyalgia; J45.909 Unspecified asthma, uncomplicated; K21.9 Gastro-esophageal reflux disease without esophagitis; F41.9 Anxiety disorder, unspecified; E86.0 Dehydration; R65.20 Severe sepsis without septic shock; E11.9 Type 2 diabetes mellitus without complications; Z86.69 Personal history of other diseases of the nervous system and sense organs; Z79.899 Other long term (current) drug therapy
CPT/HCPCS: 36415; 70450; 71020; 80048; 80053; 81001; 83605; 83735; 85025; 85610; 85730; 87040; 87077; 87086; 87186; 93005; 96361; 96365; 99285